=== PATIENT | male | born 1990 | race Caucasian/White ===

== ENCOUNTER 2024-04-28 15:33 | Emergency (ER) | payer BC ==
[2024-04-28] MEDS: Acetaminophen 325 MG Tab PO ONE (16:22)
[2024-04-28] MEDS: Cyclobenzaprine 10 MG Tab PO ONE (16:23)
== END 2024-04-28 17:00 | disposition home or self-care (01) ==
LOC: JD.ED 15:33
DX: M54.6 Pain in thoracic spine (principal); Z88.5 Allergy status to narcotic agent; Z79.899 Other long term (current) drug therapy
CPT/HCPCS: 99283; A9270

== ENCOUNTER 2024-06-07 18:16 | Emergency (ER) | payer BC ==
[2024-06-07] MEDS: Ketorolac 30 MG/ML SDV IM ONE (22:15)
== END 2024-06-07 22:47 | disposition home or self-care (01) ==
LOC: JD.ED 18:16
DX: S60.221A Contusion of right hand, initial encounter (principal); Z88.5 Allergy status to narcotic agent; W19.XXXA Unspecified fall, initial encounter
CPT/HCPCS: 73130; 73200; 96372; 99284; J1885; 99282